=== PATIENT | male | born 1955 | race Caucasian/White ===

== ENCOUNTER 2019-01-27 22:52 | Emergency (ER) | payer BC ==
[~2019-01-27] VITALS: Ht 177.8 cm; Wt 86.2 kg
--- NOTE | 2019-01-27 23:45 | NUR ---
BIBSELF FROM HOME TO ER BED 10. AAOX4. NO RESP DISTRESS NOTED. AMBULATORY. C/O RECTAL PAIN. PT REPORTS THAT PAIN STARTED THIS EVENING. PAIN IS 10/10 FEELING GOF PRESSURE. PT EVEN DESCRIDES IT "I FEEL LIKE A STONE IS PASSING". PT IS NOTED WITH HIGH BP. MD AT BEDSIDE FOR EVAL. ORDERS RECEIVED NOTED AND CARRIED OUT.
[2019-01-27] MEDS ORDERED: CARVEDILOL 6.25 MG TABLET ONE (23:53)
[2019-01-27] MEDS ORDERED: LISINOPRIL (10MG) 10 MG TABLET ONE (23:58)
[2019-01-27] MEDS ORDERED: METFORMIN 500 MG TABLET ONE (23:59)
[2019-01-28] MEDS ORDERED: CARVEDILOL 6.25 MG TABLET PO ONE
[2019-01-28] MEDS ORDERED: METFORMIN 500 MG TABLET PO ONE
[2019-01-28] MEDS ORDERED: LISINOPRIL (10MG) 10 MG TABLET PO SCH
--- NOTE | 2019-01-28 00:06 | NUR ---
CARDEDILOL AND LISINOPRIL WAS TAKEN FROM FROM ICU [facility] D/T MEDICATION NOT AVAILABLE IN ER [facility]
[2019-01-28] MEDS ORDERED: HYDROCODONE/APAP 10/325MG 1 EA TABLET ONE (00:17)
--- NOTE | 2019-01-28 00:20 | NUR ---
PT COMPLAINED OF PAIN. MD MADE AWARE. RECEIVED VERBAL ORDER TO GIVE NORCO 10-325 X 1 ONLY BY MOUTH
[2019-01-28 00:46] VITALS: BP 170/88
--- NOTE | 2019-01-28 00:46 | NUR ---
Patient discharged to home in stable condition. Written and verbal after care instructions given. Patient verbalizes understanding of instruction. Pt ambulatory with a steady gait
[2019-01-30] MEDS ORDERED: HYDROCODONE/APAP 10/325MG 1 EA TABLET PO ONE (07:30)
== END 2019-01-28 00:47 | disposition home or self-care (01) ==
LOC: ER 22:52
DX: K59.00 Constipation, unspecified (principal); I10 Essential (primary) hypertension; I25.10 Atherosclerotic heart disease of native coronary artery without angina pectoris; G43.909 Migraine, unspecified, not intractable, without status migrainosus; Z98.890 Other specified postprocedural states; Z88.5 Allergy status to narcotic agent
CPT/HCPCS: 74018

== ENCOUNTER 2024-02-20 15:38 | Inpatient (IN) | payer BC ==
[~2024-02-20] VITALS: Ht 177.8 cm; Wt 73.9 kg
[2024-02-20] MEDS ORDERED: KETOROLAC TROMETHAMINE 15 MG/ML VIAL ONE ×2 (16:18→16:19)
[2024-02-20 16:30] LABS: BASOPHILS % (AUTO) 0.2 % (0.0-2.0); EOSINOPHILS % (AUTO) 0.4 % (0.0-6.0); HEMATOCRIT 27 % (39-51); HEMOGLOBIN 9.4 g/dL (13.5-17.5); LYMPHOCYTES # (AUTO) 1.9 K/uL (0.8-4.8); LYMPHOCYTES % (AUTO) 16.9 % (20.0-44.0); MEAN CORPUSCULAR HEMOGLOBIN 31 PG (26.0-33.0); MEAN CORPUSCULAR HGB CONC 35 g/dl (31.0-36.0); MEAN CORPUSCULAR VOLUME 89 fL (80-96); MONOCYTES # (AUTO) 0.7 K/uL (0.1-1.30); MONOCYTES % (AUTO) 6.3 % (2.0-12.0); NEUTROPHILS # (AUTO) 8.6 K/uL (1.8-8.9); NEUTROPHILS % (AUTO) 76.2 % (43.0-81.0); PLATELET COUNT (AUTO) 271 K/uL (150-450); RED BLOOD CELL COUNT(AUTO) 3.07 MIL/uL (4.5-6.0); WHITE BLOOD COUNT (AUTO) 11.3 K/uL (4.3-11.0)
[2024-02-20] MEDS: KETOROLAC TROMETHAMINE INJ 30 MG/ML VIAL IM ONE (16:30)
[2024-02-20 16:49] LABS: ALANINE AMINOTRANSFERASE 13 U/L (12-78); ALBUMIN 3.1 g/dL (3.4-5.0); ALKALINE PHOSPHATASE 77 U/L (46-116); ASPARTATE AMINOTRANSFERASE 10 U/L (15-37); BILIRUBIN,DIRECT 0.2 mg/dL (0.0-0.2); BILIRUBIN,TOTAL 0.8 mg/dL (0.2-1.0); CALCIUM, SERUM 8.6 mg/dL (8.5-10.1); CARBON DIOXIDE 31 mmol/L (21-32); CHLORIDE 91 mmol/L (98-107); CREATININE 0.8 mg/dL (0.6-1.3); GLUCOSE 285 mg/dL (74-106); LIPASE 31 U/L (16-77); POTASSIUM 5.4 mmol/L (3.5-5.1); SODIUM SERUM 126 mmol/L (136-145); TOTAL PROTEIN, SERUM 6.5 g/dL (6.4-8.2); UREA NITROGEN, BLOOD 10 mg/dL (7-18)
[2024-02-20] MEDS: ASPIRIN 325 MG TABLET PO ONE (17:19)
[2024-02-20] MEDS ORDERED: VITA400C74 PO (17:42)
[2024-02-20] MEDS ORDERED: METF-440 PO (17:42)
[2024-02-20] MEDS ORDERED: ASPI-1169 PO (17:42)
[2024-02-20] MEDS ORDERED: ASCO-352 PO (17:42)
[2024-02-20] MEDS ORDERED: CARV12.5 PO (17:42)
[2024-02-20] MEDS ORDERED: CHOL100043 PO (17:42)
[2024-02-20] MEDS ORDERED: SIMV-49 PO (17:42)
[2024-02-20] MEDS ORDERED: LISI40TA13 PO (17:42)
[2024-02-20] MEDS ORDERED: MAGNESIUM HYDROXIDE 30 ML UDC PO PRN (20:30)
[2024-02-20] MEDS ORDERED: ONDANSETRON HCL/PF 4 MG/2 ML VIAL IVP PRN (20:30)
[2024-02-20] MEDS ORDERED: Z GUARD REMEDY 4 OZ OINT TP PRN (20:30)
[2024-02-20] MEDS ORDERED: MAG HYDROX/AL HYDROX/SIMETH 30 ML UDC PO PRN (20:30)
[2024-02-20] MEDS ORDERED: ACETAMINOPHEN 325 MG TABLET PO PRN (20:30)
[2024-02-20] MEDS ORDERED: LACTULOSE 10 G/15 ML UDC (PYXIS) PO PRN (20:30)
[2024-02-20 20:42] VITALS: BP 147/84; TEMP 98.2; O2SAT 97
[2024-02-20] MEDS: MINERAL OIL 133 ML (PYXIS) 1 EA ENEMA RC ONE (20:55)
[2024-02-20] MEDS ORDERED: ALPRAZOLAM 0.5 MG TABLET PO PRN (21:00)
[2024-02-20] MEDS ORDERED: DEXTROSE 50%-WATER 50 ML DISP.SYRIN IV PRN (21:00)
[2024-02-20] MEDS: SENNOSIDES 8.6 MG TABLET PO SCH (21:21)
[2024-02-20] MEDS: IV NS 0.9% 1,000 ML IV PRN (21:30)
[2024-02-20] MEDS: BLOOD SUGAR DIAGNOSTIC 1 EACH STRIP IN SCH (22:28)
[2024-02-20] MEDS: INSULIN REGULAR, HUMAN 100 UNIT/ML 3 ML VIAL SQ PRN (22:32)
[2024-02-21] VITALS: BP 134/77; TEMP 98.1; O2SAT 99
[2024-02-21 04:00] VITALS: BP 119/75; TEMP 98.2; O2SAT 99
[2024-02-21 07:40] LABS: BASOPHILS % (AUTO) 0.4 % (0.0-2.0); EOSINOPHILS # (AUTO) 0.1 K/uL (0.0-0.7); EOSINOPHILS % (AUTO) 1.4 % (0.0-6.0); HEMATOCRIT 26 % (39-51); LYMPHOCYTES # (AUTO) 1.9 K/uL (0.8-4.8); MEAN CORPUSCULAR HEMOGLOBIN 30 PG (26.0-33.0); MEAN CORPUSCULAR HGB CONC 34 g/dl (31.0-36.0); MEAN CORPUSCULAR VOLUME 89 fL (80-96); MONOCYTES # (AUTO) 0.7 K/uL (0.1-1.30); MONOCYTES % (AUTO) 7.5 % (2.0-12.0); NEUTROPHILS # (AUTO) 6.6 K/uL (1.8-8.9); NEUTROPHILS % (AUTO) 70.7 % (43.0-81.0); PLATELET COUNT (AUTO) 240 K/uL (150-450); RED BLOOD CELL COUNT(AUTO) 2.96 MIL/uL (4.5-6.0); RED CELL DISTRIBUTION WIDTH 14.1 % (11.5-15.0); WHITE BLOOD COUNT (AUTO) 9.4 K/uL (4.3-11.0)
[2024-02-21 08:00] VITALS: BP 156/94; TEMP 98; O2SAT 98
[2024-02-21 08:09] LABS: CALCIUM, SERUM 8.5 mg/dL (8.5-10.1); CREATININE 0.7 mg/dL (0.6-1.3); MAGNESIUM 2.1 mg/dL (1.8-2.4); PHOSPHORUS 2.8 mg/dL (2.5-4.9); POTASSIUM 4.9 mmol/L (3.5-5.1)
[2024-02-21 08:14] LABS: THYROID STIMULATING HORMONE 0.84 uIU/mL (0.358-3.74)
[2024-02-21] MEDS: PANTOPRAZOLE 40 MG TABLET.DR PO SCH (08:21)
[2024-02-21] MEDS: ASPIRIN 81 MG TAB.CHEW PO SCH (08:25)
[2024-02-21] MEDS: POLYETHYLENE GLYCOL 3350 17 GM POWD.PACK PO PRN (10:23)
[2024-02-21] MEDS: HYDROCODONE/APAP 5/325MG TABLET PO PRN (10:24)
[2024-02-21 12:00] VITALS: BP 137/81; TEMP 98.6; O2SAT 98
[2024-02-21] MEDS: POLYETHYLENE GLYCOL 3350 17 GM POWD.PACK PO SCH (13:19)
[2024-02-21] MEDS: MINERAL OIL 133 ML (PYXIS) 1 EA ENEMA RC ONE (14:13)
[2024-02-21 16:00] VITALS: BP 130/77; TEMP 98.5; O2SAT 98
[2024-02-21 20:00] VITALS: BP 132/81; TEMP 98.1; O2SAT 98
[2024-02-22] VITALS: BP 133/74; TEMP 98.1; O2SAT 98
[2024-02-22 04:00] VITALS: BP 139/87; TEMP 98.5; O2SAT 97
[2024-02-22 08:00] VITALS: BP 153/86; TEMP 98.1; O2SAT 99
[2024-02-22 08:00] LABS: CALCIUM, SERUM 8.1 mg/dL (8.5-10.1); CREATININE 0.6 mg/dL (0.6-1.3); POTASSIUM 4.4 mmol/L (3.5-5.1)
[2024-02-22] MEDS: METOPROLOL TARTRATE 50 MG TABLET PO SCH (11:55)
[2024-02-22 12:00] VITALS: BP 142/91; TEMP 97; O2SAT 99
[2024-02-22] MEDS ORDERED: PHENYLEPHRINE/SHK LV/MO/PET,WH 30 GM TUBE RC PRN (12:00)
[2024-02-22 15:42] LABS: URINE SODIUM, RANDOM 119 mmol/l (40-220)
[2024-02-22 16:00] VITALS: BP 124/74; TEMP 97.9; O2SAT 97
[2024-02-22 20:00] VITALS: BP 148/82; TEMP 98.2; O2SAT 100
[2024-02-23] VITALS: BP 145/91; TEMP 98.1; O2SAT 99
[2024-02-23 04:00] VITALS: BP 141/73; TEMP 98.1; O2SAT 99
[2024-02-23 08:00] VITALS: BP 140/86; TEMP 98.6; O2SAT 99
[2024-02-23 08:07] LABS: CALCIUM, SERUM 8.5 mg/dL (8.5-10.1); CREATININE 0.7 mg/dL (0.6-1.3); MAGNESIUM 1.8 mg/dL (1.8-2.4); PHOSPHORUS 3.5 mg/dL (2.5-4.9); POTASSIUM 4.3 mmol/L (3.5-5.1)
[2024-02-23 10:54] LABS: BASOPHILS # (AUTO) 0.1 K/uL (0.0-0.2); BASOPHILS % (AUTO) 0.6 % (0.0-2.0); EOSINOPHILS # (AUTO) 0.3 K/uL (0.0-0.7); EOSINOPHILS % (AUTO) 4.3 % (0.0-6.0); HEMATOCRIT 29 % (39-51); LYMPHOCYTES % (AUTO) 24.9 % (20.0-44.0); MEAN CORPUSCULAR HEMOGLOBIN 31 PG (26.0-33.0); MEAN CORPUSCULAR HGB CONC 35 g/dl (31.0-36.0); MEAN CORPUSCULAR VOLUME 90 fL (80-96); MONOCYTES # (AUTO) 0.7 K/uL (0.1-1.30); MONOCYTES % (AUTO) 8.2 % (2.0-12.0); PLATELET COUNT (AUTO) 276 K/uL (150-450); RED BLOOD CELL COUNT(AUTO) 3.21 MIL/uL (4.5-6.0); RED CELL DISTRIBUTION WIDTH 13.9 % (11.5-15.0); WHITE BLOOD COUNT (AUTO) 8.1 K/uL (4.3-11.0)
[2024-02-23] MEDS ORDERED: POLY17PO4 PO (11:26)
[2024-02-23 12:00] VITALS: BP 119/77; TEMP 98.6; O2SAT 99
== END 2024-02-23 15:58 | disposition home or self-care (01) | DRG 391 ==
LOC: ER 15:53 → TELE1 20:04
PROVIDERS: ADMIT Nurse Practitioner Acute Care; ATTEND Nurse Practitioner Family
DX: K59.00 Constipation, unspecified (principal); I21.A1 Myocardial infarction type 2; C15.9 Malignant neoplasm of esophagus, unspecified; E22.2 Syndrome of inappropriate secretion of antidiuretic hormone; I10 Essential (primary) hypertension; D63.8 Anemia in other chronic diseases classified elsewhere; E11.9 Type 2 diabetes mellitus without complications; E78.5 Hyperlipidemia, unspecified; E86.0 Dehydration; E86.1 Hypovolemia; E87.5 Hyperkalemia; I25.10 Atherosclerotic heart disease of native coronary artery without angina pectoris; K52.89 Other specified noninfective gastroenteritis and colitis; K44.9 Diaphragmatic hernia without obstruction or gangrene; Z79.84 Long term (current) use of oral hypoglycemic drugs; I25.2 Old myocardial infarction; R59.0 Localized enlarged lymph nodes
CPT/HCPCS: 36415; 71045-TC; 80048-TC; 80061-TC; 80076-TC; 82533; 82728-TC; 82962-TC; 83540-TC; 83690-TC; 83735-TC; 83935-TC; 84100-TC; 84300-TC; 84439-TC; 84443-TC; 84484-TC; 84550-TC; 85025-TC; 92526; 92611-TC; 93307-TC; G0378; J1815; J1885; J3490; J7030

== ENCOUNTER 2024-04-30 21:40 | Emergency (ER) | payer BC ==
[~2024-04-30] VITALS: Ht 175.3 cm; Wt 72.6 kg
[~2024-04-30 21:40] MED LIST: ASCO-352 PO; ASPI-1169 PO; CARV12.5 PO; CHOL100043 PO; LISI40TA13 PO; METF-440 PO; POLY17PO4 PO; SIMV-49 PO; VITA400C74 PO
[2024-04-30 22:48] VITALS: BP 115/73; TEMP 98.1
[2024-04-30 23:05] VITALS: O2SAT 98
== END 2024-04-30 23:24 | disposition home or self-care (01) ==
LOC: ER 21:47
DX: K59.09 Other constipation (principal); Z79.84 Long term (current) use of oral hypoglycemic drugs; Z79.899 Other long term (current) drug therapy; Z88.5 Allergy status to narcotic agent